=== PATIENT | female | born 1935 | race Caucasian/White ===

== ENCOUNTER 2019-09-07 17:57 | Emergency (ER) | payer MEDICARE, BC ==
[~2019-09-07] VITALS: Ht 142.2 cm; Wt 77.1 kg
[~2019-09-07 17:57] MED LIST: ALLO100T PO; ASCO-375 PO; BIMA2.5D5 EACHEYE; BRIM5DRO2 EACHEYE; CELE200C PO; CHOL10005 PO; CLIN300C11 PO; CLON1PAT TD; DOCU-141 PO; FERR324T16 PO; FOLI1TAB16 PO; FURO20TA4 PO; LEVO50TA PO; METF-494 PO; OMEP20TA20 PO; OXYC10TA49 PO; OXYC10TA59 PO; POTA10CA43 PO; PYRI-6 PO; SIMV-46 PO; VALS1TAB6 PO; VITA100D6 PO; ZINC220C8 PO
--- NOTE | 2019-09-07 18:56 | NUR ---
PT IS IN ROOM #1B. DR LANDRY EVALUATED THE PT.
[2019-09-07] MEDS ORDERED: VANCOMYCIN IV 1,000 MG in IV DEXTROSE 5% 250 ML IV ONE (19:00)
--- NOTE | 2019-09-07 19:03 | NUR ---
REPORT WAS GIVEN TO STUNT WOMAN RN.
[2019-09-07 19:16] LABS: CARBON DIOXIDE 28 mmol/L (21-32); CHLORIDE 102 mmol/L (98-107); CREATININE 1.4 mg/dL (0.6-1.3); GLUCOSE 127 mg/dL (74-106); POTASSIUM 3.7 mmol/L (3.5-5.1); UREA NITROGEN, BLOOD 41 mg/dL (7-18)
[2019-09-07] MEDS ORDERED: VANCOMYCIN IV 200 ML ONE (19:18)
[2019-09-07 19:30] LABS: BASOPHILS # (AUTO) 0.1 K/uL (0.0-8.0); BASOPHILS % (AUTO) 0.7 % (0.0-2.0); EOSINOPHILS # (AUTO) 0.2 K/uL (0.0-0.7); EOSINOPHILS % (AUTO) 1.3 % (0.0-7.0); HEMATOCRIT 34.8 % (31.2-41.9); HEMOGLOBIN 11.4 g/dL (10.9-14.3); LYMPHOCYTES # (AUTO) 2.4 K/uL (20.0-40.0); LYMPHOCYTES % (AUTO) 18.4 % (20.5-51.5); MEAN CORPUSCULAR HEMOGLOBIN 29.5 uug (24.7-32.8); MEAN CORPUSCULAR HGB CONC 33 g/dL (32.3-35.6); MEAN CORPUSCULAR VOLUME 89.9 fL (75.5-95.3); MONOCYTES # (AUTO) 0.7 K/uL (2.0-10.0); MONOCYTES % (AUTO) 5.6 % (0.0-11.0); NEUTROPHILS # (AUTO) 9.5 K/uL (1.8-8.9); PLATELET COUNT (AUTO) 206 K/uL (179-408); RED BLOOD CELL COUNT(AUTO) 3.87 MIL/uL (3.63-4.92); WHITE BLOOD COUNT (AUTO) 12.9 K/uL (3.8-11.8)
[2019-09-07 19:33] LABS: ALANINE AMINOTRANSFERASE 34 U/L (14-59); ALKALINE PHOSPHATASE 49 U/L (50-136); ASPARTATE AMINOTRANSFERASE 24 U/L (15-37); BILIRUBIN,DIRECT 0.1 mg/dL (0.0-0.2); BILIRUBIN,TOTAL 0.3 mg/dL (0.2-1.0); TOTAL PROTEIN, SERUM 7.4 g/dL (6.4-8.2)
[2019-09-07 21:12] VITALS: BP 120/46
--- NOTE | 2019-09-07 21:12 | NUR ---
Patient discharged to home in stable conditon. Written and verbal after care instructions given. Patient verbalizes understanding of instructions. PATIENT LEFT WITH STABLE GAIT.
== END 2019-09-07 21:13 | disposition home or self-care (01) ==
LOC: ER 17:58
DX: L03.113 Cellulitis of right upper limb (principal); N28.9 Disorder of kidney and ureter, unspecified; E78.00 Pure hypercholesterolemia, unspecified; E11.9 Type 2 diabetes mellitus without complications; Z91.041 Radiographic dye allergy status; Z79.899 Other long term (current) drug therapy; Z79.2 Long term (current) use of antibiotics
CPT/HCPCS: 36415; 71045; 80048; 80076; 82550; 83880; 84484; 85025; 85730; 87040; 93005; 93971; 96365; 96376; 99284; J3370; 70030-TC; A4663

== ENCOUNTER 2020-03-25 22:50 | Emergency (ER) | payer MEDICARE, BC ==
[~2020-03-25] VITALS: Ht 142.2 cm; Wt 74.4 kg
[~2020-03-25 22:50] MED LIST changes: -CLIN300C11 PO; +ZINC1CAP2 PO; -ZINC220C8 PO
[2020-03-25] MEDS ORDERED: DILTIAZEM HCL 25 MG IV IV ONE (23:15)
--- NOTE | 2020-03-25 23:15 | NUR ---
Dr. Andersen at bedside for MSE.
[2020-03-25] MEDS ORDERED: DILTIAZEM HCL 25 MG IV ONE (23:29)
--- NOTE | 2020-03-25 23:33 | NUR ---
Xray at bedside.
--- NOTE | 2020-03-25 23:36 | NUR ---
Dr. Andersen speaking with Dr. Cedeno
--- NOTE | 2020-03-25 23:41 | NUR ---
Callled Dr. Earl for stat echocardiogram, left message.
[2020-03-26 00:15] LABS: BASOPHILS # (AUTO) 0.1 K/uL (0.0-8.0); BASOPHILS % (AUTO) 1.3 % (0.0-2.0); EOSINOPHILS # (AUTO) 0.2 K/uL (0.0-0.7); EOSINOPHILS % (AUTO) 2.4 % (0.0-7.0); HEMATOCRIT 37.1 % (31.2-41.9); HEMOGLOBIN 12.3 g/dL (10.9-14.3); LYMPHOCYTES # (AUTO) 3.6 K/uL (20.0-40.0); LYMPHOCYTES % (AUTO) 42.7 % (20.5-51.5); MEAN CORPUSCULAR HEMOGLOBIN 30.7 uug (24.7-32.8); MEAN CORPUSCULAR HGB CONC 33 g/dL (32.3-35.6); MEAN CORPUSCULAR VOLUME 92.9 fL (75.5-95.3); MONOCYTES # (AUTO) 0.7 K/uL (2.0-10.0); NEUTROPHILS # (AUTO) 3.9 K/uL (1.8-8.9); NEUTROPHILS % (AUTO) 45.6 % (38.5-71.5); PLATELET COUNT (AUTO) 263 K/uL (179-408); WHITE BLOOD COUNT (AUTO) 8.5 K/uL (3.8-11.8)
[2020-03-26 00:24] LABS: CARBON DIOXIDE 23 mmol/L (21-32); CHLORIDE 106 mmol/L (98-107); CREATININE 1.6 mg/dL (0.6-1.3); GLUCOSE 126 mg/dL (74-106); POTASSIUM 4.7 mmol/L (3.5-5.1); UREA NITROGEN, BLOOD 46 mg/dL (7-18)
[2020-03-26] MEDS ORDERED: DILTIAZEM HCL 25 MG IV ONE (00:28)
[2020-03-26] MEDS ORDERED: DILTIAZEM HCL 25 MG IV IV ONE (00:30)
[2020-03-26 00:36] LABS: ALANINE AMINOTRANSFERASE 19 U/L (14-59); ALKALINE PHOSPHATASE 41 U/L (50-136); ASPARTATE AMINOTRANSFERASE 23 U/L (15-37); BILIRUBIN,DIRECT 0.1 mg/dL (0.0-0.2); BILIRUBIN,TOTAL 0.2 mg/dL (0.2-1.0); TOTAL PROTEIN, SERUM 7.2 g/dL (6.4-8.2)
[2020-03-26] MEDS ORDERED: VALS1TAB6 PO (01:30)
[2020-03-26] MEDS ORDERED: ASCO500C18 PO (01:30)
[2020-03-26] MEDS ORDERED: ALLO300T2 PO (01:30)
[2020-03-26] MEDS ORDERED: THIO300C PO (01:30)
[2020-03-26] MEDS ORDERED: VITAMIN E PO (01:30)
[2020-03-26] MEDS ORDERED: OMEP20TA20 PO (01:30)
[2020-03-26] MEDS ORDERED: POTASSIUM PO (01:30)
[2020-03-26] MEDS ORDERED: CARV6.25 PO (01:30)
[2020-03-26] MEDS ORDERED: APIX2.5T PO (01:30)
[2020-03-26] MEDS ORDERED: SIMV20TA2 PO (01:30)
[2020-03-26] MEDS ORDERED: FENO145T PO (01:30)
[2020-03-26] MEDS ORDERED: DULO30CA2 PO (01:30)
--- NOTE | 2020-03-26 01:35 | NUR ---
Patient does not wish to proceed with medical care recommended by Dr. Andersen. Patient given information related to possible complications, up to and including , which could occur as a result of leaving the hospital at this time. Patient verbalizes understanding of risks involved due to leaving against medical advice. Patient has signed AMA form.
[2020-03-26 01:47] VITALS: BP 147/79
== END 2020-03-26 01:48 | disposition left against medical advice (07) ==
LOC: ER 22:52
DX: I48.91 Unspecified atrial fibrillation (principal); I48.92 Unspecified atrial flutter; I44.30 Unspecified atrioventricular block; E89.0 Postprocedural hypothyroidism; E78.00 Pure hypercholesterolemia, unspecified; Z85.3 Personal history of malignant neoplasm of breast; Z79.01 Long term (current) use of anticoagulants; E11.9 Type 2 diabetes mellitus without complications; Z79.84 Long term (current) use of oral hypoglycemic drugs; Z79.899 Other long term (current) drug therapy
CPT/HCPCS: 36415; 71045; 80048; 80076; 83605; 83735; 83880; 84443; 84484; 85025; 85730; 87040 ×2; 93005; 96374; 99285; J3490 ×2; 70030-TC; A4663